=== PATIENT | female | born 1960 | race African-American/Black ===

== ENCOUNTER 2016-07-14 08:56 | Day surgery (SDC) | payer SELFPAY ==
[~2016-07-14 08:56] MED LIST: AMLO1TAB12 PO; AMLO1TAB15 PO; ASPI-482 PO; CRESTOR10 MG PO; CYAN500T17 PO; DEXL60CA PO; FENTANYL PF 100 MCG/2 ML VIAL. IV PRN; FERR-26 PO; HEPARIN S0DIUM 5,000 UNIT in IV NORMAL SALINE 500ML BAG 500 ML IRR ONE; HYDR25TA9 PO; HYDROMORPHONE 2 MG/ML VIAL. IV PRN; IBUP-1027 PO; IV RINGERS,LACTATED 1000ML 1,000 ML IV SCH; LIDOCAINE 1% 1 ML SYRINGE. ID PRN; LORA10TA3 PO; METF10002 PO; MORPHINE SULFATE 2 MG/ML DISP.SYRIN. IV PRN; ONDANSETRON PF 4 MG/2 ML VIAL. IV PRN; OXYC-323 PO; OXYC5CAP3 PO; PANT40TA3 PO; POLY17PO5 PO; POTA20TA82 PO; PROCHLORPERAZINE 10 MG/2 ML VIAL. IV PRN; RANI300T3 PO; TRIA15CR3 TP; VENTOLIN HFA18 GM INH
[2016-07-14] MEDS ORDERED: CEFAZOLIN 2GM PREMIX 50 ML IV ONE ×2 (09:45→11:45)
[2016-07-14] MEDS ORDERED: BUPIVAC MPF-EPI 0.5%-1:200000 30 ML VIAL. ONE (10:06)
[2016-07-14] MEDS ORDERED: HEPARIN for IV BOLUS 10,000 UNIT/10 ML VIAL. ONE (10:07)
[2016-07-14] MEDS ORDERED: LIDOCAINE 2% 100 MG/5 ML DISP.SYRIN. ONE (10:15)
[2016-07-14] MEDS ORDERED: PROPOFOL 20 ML IV ONE (10:15)
[2016-07-14] MEDS ORDERED: VANCOMYCIN 1GM IVPB FOR OMNI 250 ML ONE (10:22)
[2016-07-14] MEDS ORDERED: VANCOMYCIN 1GM IVPB FOR OMNI 250 ML IV ONE (10:45)
[2016-07-14] MEDS ORDERED: CEFAZOLIN PREMIX 2 GM/50 ML BAG. IV ONE (10:49)
[2016-07-14] MEDS ORDERED: KETAMINE HCL 500 MG/10 ML VIAL. ONE (10:53)
--- NOTE | 2016-07-14 11:40 | PDOC ---
BRIEF OPERATIVE NOTE Pre-Op Diagnosis gastric cancer left ij port a cath placement with u/s and fluoro k ponnjenniferu local/sedation ebl 10 ivf 300 keren well to rr stable. [id number] AZUL CROUCH MD Jul 14, 2016 11:40
[2016-07-14] MEDS: FENTANYL PF 100 MCG/2 ML VIAL. IV PRN ×2 (12:09→12:29)
--- NOTE | 2016-07-14 12:09 | RAD ---
Indication: IJ port placement. Time of exam 11:58 AM Comparison is made with prior chest from 04/02/2016. Left IJ port has been placed and has the tip overlying the SVC. A right-sided port has been removed. Lungs are clear. There is no pneumothorax. Impression: Port placement. No pneumothorax is identified.
[2016-07-14] MEDS ORDERED: IBUPROFEN 200 MG TABLET PO ONE (12:11)
[2016-07-14] MEDS ORDERED: IBUPROFEN 800 MG TABLET. PO ONE (12:15)
[2016-07-14 12:32] VITALS: BP 119/61
--- NOTE | 2016-07-14 12:58 | OP ---
DATE OF SURGERY: 07/14/2016 PREOPERATIVE DIAGNOSIS: Gastric cancer. POSTOPERATIVE DIAGNOSIS: Gastric cancer. PROCEDURE: 1. Left internal jugular Port-A-Cath placement. 2. Ultrasound-guided venous access. 3. Intraoperative use of fluoroscopy. SURGEON: Azul Crouch MD ANESTHESIA: Local with sedation. ESTIMATED BLOOD LOSS: 10 mL. INTRAVENOUS FLUIDS: 300 mL. INDICATIONS: The patient is a 55-year-old female who has gastric cancer and is in need of ongoing chemotherapy. She previously had right IJ Port-A-Cath placed, but it became infected and required it to be removed. She is here now for left sided Port-A-Cath placement. PROCEDURE IN DETAIL: After informed consent was obtained, the patient was taken to the operating room and placed in supine position. After adequate induction of IV sedation, she was prepped and draped in usual sterile fashion. She was given 2 grams of Ancef IV and then vancomycin 1 gram IV was infusing upon entry into the operating room. The left internal jugular vein was visualized with ultrasound. The overlying skin was anesthetized with local anesthetic. Cook needle was used to access the left internal jugular vein under direct ultrasound guidance. The vein was accessed on the first attempt. Venous blood aspirated easily into the syringe. The syringe was removed, guidewire was advanced through the Cook needle under direct fluoroscopic vision, it was confirmed that the guidewire advanced down the right side of the heart. The Cook needle was removed. The guidewire was clamped to the drapes with the hemostat. Skin was anesthetized with local anesthetic at the right chest and then tunneled from the right chest to the right neck. Skin incisions at the right chest was made and a pocket was created with cautery for the Port-A-Cath. The skin incision was made over the guidewire and then the catheter was tunneled from the right chest to the right neck. The catheter was not allowed to touch the skin during the procedure. It was brought on and laid on a sterile blue towel just beneath the chest incision. Dilator and sheath were passed over the guidewire under fluoroscopic vision where the patient was in Trendelenburg and dilator and sheath passed easily. The guidewire slid back and forth easily throughout passage of the dilator and sheath. The dilator and guidewire were removed leaving the sheath in place. The catheter was inserted into the sheath. The sheath was split and removed. The patient was taken out of Trendelenburg and then under direct fluoroscopic vision, the catheter was withdrawn to a distance of 26 cm, at which point it was in the distal SVC right atrial junction. The catheter was then cut, the port was attached and a collar was then secured over the port catheter junction. The port was placed in the pocket. It was aspirated venous blood, aspirated easily. It was then flushed with dilute heparinized saline of 10 units of heparin per mL of saline. No extravasation of flush was noted at the port-catheter junction and then the catheter was locked with a final locking flush of 2 mL of heparin with the constitution of heparin being 1000 units per mL. The incision was closed. The deep layer was closed with 3-0 PDS in a running fashion. The skin was closed with 4-0 Monocryl in subcuticular fashion. An incision at the left neck was closed with 4-0 Monocryl in a subcuticular fashion. Sterile dressings were placed, which consisted of the equivalent of Dermabond followed by Steri-Strips and island dressing. She tolerated the procedure well. There were no apparent complications. She was then transferred in stable condition to recovery room. AZUL CROUCH MD DR: OLIVIA/john JOB#: [id number] / [id number] [facility] ULYSSES CLEMONS MD, VINAY MD MTDD
== END 2016-07-14 13:09 | disposition home or self-care (01) ==
LOC: SURG 08:56
PROVIDERS: ATTEND Surgery
DX: C16.9 Malignant neoplasm of stomach, unspecified (principal); I10 Essential (primary) hypertension; E11.9 Type 2 diabetes mellitus without complications; E78.00 Pure hypercholesterolemia, unspecified; J45.909 Unspecified asthma, uncomplicated; Z85.028 Personal history of other malignant neoplasm of stomach; Z98.84 Bariatric surgery status; Z83.3 Family history of diabetes mellitus; Z80.3 Family history of malignant neoplasm of breast
CPT/HCPCS: 36561; 71010; 82947; C1769; J0690; J2704; J3010; J3370; J3490; J7040; 36556

== ENCOUNTER → 2016-10-04 | Day surgery (SDC) | payer SELFPAY ==
[~2016-10-04] MED LIST changes: -FENTANYL PF 100 MCG/2 ML VIAL. IV PRN; -HEPARIN S0DIUM 5,000 UNIT in IV NORMAL SALINE 500ML BAG 500 ML IRR ONE; -HYDROMORPHONE 2 MG/ML VIAL. IV PRN; -IV RINGERS,LACTATED 1000ML 1,000 ML IV SCH; -LIDOCAINE 1% 1 ML SYRINGE. ID PRN; +LIDOCAINE 1%/EPI 1:100,000 20 ML VIAL. INJ ONE; +LIDOCAINE 1%/EPI 1:100,000 20 ML VIAL. ONE; -MORPHINE SULFATE 2 MG/ML DISP.SYRIN. IV PRN; -ONDANSETRON PF 4 MG/2 ML VIAL. IV PRN; -PROCHLORPERAZINE 10 MG/2 ML VIAL. IV PRN
[2016-10-04 11:00] VITALS: BP 128/81
--- NOTE | 2016-10-04 11:47 | PDOC ---
BRIEF OPERATIVE NOTE Pre-Op Diagnosis #[id number] exposed infected port a cath removal of infected port demetria crouch local ebl <5 keren well dc home. AZUL CROUCH MD Oct 04, 2016 11:47
--- NOTE | 2016-10-04 12:23 | OP ---
DATE OF SURGERY: PREOPERATIVE DIAGNOSIS: Exposed infected Port-A-Cath. POSTOPERATIVE DIAGNOSIS: Exposed infected Port-A-Cath. PROCEDURE: Removal of exposed infected Port-A-Cath. SURGEON: Azul Crouch M.D. ANESTHESIA: Local. ESTIMATED BLOOD LOSS: Less than 5 mL. IV FLUIDS: None. INDICATIONS: The patient is a 56-year-old female who is getting chemotherapy for metastatic gastric cancer, who presented to my office today with an exposed Port-A-Cath. She is here today for excision. DESCRIPTION OF PROCEDURE: After informed consent was obtained, the patient was taken to the minor room. She was placed in supine position. The area was prepped and draped in a sterile fashion; the skin was then anesthetized with local anesthetic. The wound was largely open already, it was enlarged slightly both medially and laterally with a scalpel and then the 2 Prolene sutures attaching the port to the chest wall were cut and excised. The port was removed and the tip was sent for culture. The catheter tip was inspected to make sure that the entire catheter was removed and confirmed that it was removed in its entirety. The wound was cultured as well. The opening in the subcutaneous tissue where the catheter inserted into the tract from the chest to the neck was oversewn with 3-0 Vicryl suture x 2. There was no bleeding from this site. The wound was irrigated. It was hemostatic. It was then packed with dry gauze and covered with gauze and tape. She was asked to pack her wound daily and she ____ when her right side of port became infected. She says she understands and will do this. She is going to followup me in my office in two weeks. AZUL CROUCH MD DR: OLIVIA/john JOB#: [id number] / [id number] ULYSSES CLEMONS MD, VINAY MD
--- NOTE | 2016-10-05 15:13 | PATHOLOGY ---
PATHOLOGY REPORT * * * * * * * * FINAL DIAGNOSIS: Port-a-cath tip (Gross only). (JPM:; d/t: 10/05/16) REPORT ELECTRONICALLY SIGNED BY: Tyson Donahue M.D. DATE/TIME: 10/05/2016 15:12 * * * * * * * * GROSS PATHOLOGY: The specimen is received fresh, labeled "Celia Celis, Port-A-Cath tip". Received is a segment of white tubing measuring 2.7 cm in length by 0.3 cm in diameter. A gross photograph is taken. Sections are not submitted. (CAA; 10/04/2016) INITIAL CPT CODE(S): A; 45312 Professional services performed [place] [facility] [place] [address] Technical services performed by [facility] at [address] [place] [address] [address] [address]. SPECIMEN(S) RECEIVED: A.Port-a-cath tip CLINICAL HISTORY: Port removal PATIENT: CELIA CELIS /AGE: 107/16/1960 (Age: 56) PATIENT #: [id number] ALT CASE #: SPECIMEN COLLECTION DATE: 10/04/2016 SPECIMEN RECEIVED DATE: 10/04/2016 [facility] - [address] [place] [address] - PHONE: [phone] * * * END OF REPORT * * *
== END | disposition home or self-care (01) ==
LOC: SURG 10:28
PROVIDERS: ATTEND Surgery
DX: T80.218A Other infection due to central venous catheter, initial encounter (principal); C78.89 Secondary malignant neoplasm of other digestive organs; E78.00 Pure hypercholesterolemia, unspecified; I10 Essential (primary) hypertension; J45.909 Unspecified asthma, uncomplicated; M19.90 Unspecified osteoarthritis, unspecified site; E11.9 Type 2 diabetes mellitus without complications; D64.9 Anemia, unspecified; Z86.14 Personal history of Methicillin resistant Staphylococcus aureus infection
CPT/HCPCS: 36590; 87205; J3490; 87071; 87075; 88300

== ENCOUNTER 2016-10-21 08:34 | Day surgery (SDC) | payer OTHER ==
[~2016-10-21] VITALS: Ht 152.4 cm; Wt 57.2 kg
[~2016-10-21 08:34] MED LIST changes: +BUPIVAC MPF-EPI 0.5%-1:200000 30 ML VIAL. ONE; +HEPARIN SODIUM 5,000 UNIT in IV NORMAL SALINE 500ML BAG 500 ML IRR ONE; +HEPARIN for IV BOLUS 10,000 UNIT/10 ML VIAL. ONE; +HYDROmorphone 2 MG/ML VIAL IV PRN; +IV RINGERS,LACTATED 1000ML 1,000 ML IV SCH; +LIDOCAINE 1% 1 ML SYRINGE. ID PRN; -LIDOCAINE 1%/EPI 1:100,000 20 ML VIAL. INJ ONE; -LIDOCAINE 1%/EPI 1:100,000 20 ML VIAL. ONE; +METF-620 PO; -METF10002 PO; +MORPHINE SULFATE 2 MG/ML DISP.SYRIN. IV PRN; +ONDANSETRON PF 4 MG/2 ML VIAL. IV PRN; +POLY17PO29 PO; -POLY17PO5 PO; +PROCHLORPERAZINE 10 MG/2 ML VIAL. IV PRN; +VANCOMYCIN 1GM IVPB FOR OMNI 250 ML IV ONE; +fentaNYL PF VIAL 100 MCG/2 ML VIAL IV PRN
[2016-10-21] MEDS ORDERED: DESFLURANE 61 TO 120 MINUTES IH ONE (09:45)
[2016-10-21] MEDS ORDERED: DEXAMETHASONE SOD PHOS 20 MG/5 ML VIAL. ONE (09:46)
[2016-10-21] MEDS ORDERED: MIDAZOLAM HCL/PF 2 MG/2 ML VIAL. ONE (09:46)
[2016-10-21] MEDS ORDERED: LIDOCAINE 2% 100 MG/5 ML SYRINGE. ONE (09:46)
[2016-10-21] MEDS ORDERED: PROPOFOL 20 ML IV ONE (09:46)
[2016-10-21] MEDS ORDERED: ONDANSETRON PF 4 MG/2 ML VIAL. ONE (09:46)
[2016-10-21] MEDS ORDERED: fentaNYL PF VIAL 100 MCG/2 ML VIAL ONE (09:46)
[2016-10-21] MEDS ORDERED: PHENYLEPHRINE in 0.9% NACL PF 1 MG/10 ML DISP.SYRIN. IV ONE (10:52)
[2016-10-21] MEDS ORDERED: OXYC5CAP3 PO (11:47)
[2016-10-21] MEDS ORDERED: oxyCODONE IR 5 MG TABLET PO ONE (12:05)
--- NOTE | 2016-10-21 12:09 | RAD ---
Indication Port-A-Cath placement. Assess for potential complication. A single view of the chest was obtained and is compared to an examination July 14, 2016. The heart and pulmonary vessels appear normal. There is a rounded density at the right lung base in the area of the anterior aspect of the sixth rib. This may be related to the rib itself. A pulmonary nodule is not entirely excluded. There is no acute parenchymal infiltrate or pleural fluid collection. There is a right Port-A-Cath. No complication is seen. There is no evidence of pneumothorax. IMPRESSION: Right Port-A-Cath. No complication seen. Possible pulmonary nodule right lung base
[2016-10-21 12:23] VITALS: BP 127/38
--- NOTE | 2016-10-21 12:53 | PDOC ---
BRIEF OPERATIVE NOTE Pre-Op Diagnosis gastric cancer placement of right ij port a cath k john ryees ebl <5 ivf 600 keren well to rr stable. AZUL CROUCH MD October 21, 2016 12:53
--- NOTE | 2016-10-21 15:03 | OP ---
DATE OF SURGERY: 10/21/2016 PREOPERATIVE DIAGNOSIS: Gastric cancer. POSTOPERATIVE DIAGNOSIS: Gastric cancer. PROCEDURE: 1. Placement of a right internal jugular Port-A-Cath. 2. Ultrasound-guided venous access. 3. Intraoperative use of fluoroscopy. SURGEON: Azul Crouch MD. ANESTHESIA: General. ESTIMATED BLOOD LOSS: Less than 5 mL. IV FLUIDS: 600 mL. INDICATIONS: The patient is a 56-year-old female who is in need of Port-A-Cath for ongoing treatment of gastric cancer. DESCRIPTION OF PROCEDURE: After informed consent was obtained, the patient was taken to the operating room and placed in supine position. After adequate induction of general anesthesia, she was prepped and draped in usual sterile fashion. She had been given 1 gram of vancomycin preoperatively given her history of MRSA. After prepping and draping in the usual sterile fashion, she was placed in Trendelenburg with the right IJ visualized with ultrasound, and the right IJ was accessed without difficulty under direct ultrasound-guidance. Venous blood was aspirated easily. The syringe was removed, and the guidewire was advanced through the Cook needle. Fluoroscopy was then used to confirm that the guidewire advanced on the right side of the heart. The Cook needle was removed, and the guidewire was clamped to the drape with a hemostat. Local was injected in the skin of the right chest and the subcutaneous pocket of the right chest as well as from the right chest to the right neck. Skin incision was made over the guidewire as well as on the right chest. Cautery was then used to create a pocket on the chest wall for placement of the port. The catheter was tunneled from the right neck to the right chest and allowed to lie on a sterile blue towel so that the catheter did not come in contact with the skin. Dilator and sheath were passed over the guidewire. Guidewire slid easily throughout passes of the dilator and sheath. The guidewire and dilator were removed leaving the sheath in place. The catheter was inserted through the sheath. The sheath was then removed. The patient was taken out of head-down position and returned to a flat position. The catheter was withdrawn to the superior vena cava. It was then cut, attached to the port, and then the port catheter locking device was then secured over the port catheter junction. The port was placed on a sterile blue towel and aspirated, venous blood aspirated easily into the syringe. Dilute heparinized saline was then used to flush the port. There was no extravasation from the port catheter junction. The port was placed in the subcutaneous pocket and was sutured to the chest wall with 2-0 Prolene suture x 2. The fatty layer overlying the Port-A-Cath was closed with 2-0 Monocryl in a running fashion, and the skin was closed with 4-0 Monocryl in subcuticular fashion. An incision at the right neck was also closed with 4-0 Monocryl in subcuticular fashion. Sterile dressings were placed, which consisted of Dermabond and Steri-Strips. She tolerated the procedure well. There were no apparent complications. She was transferred in stable condition to the recovery room. Also, of note, given that her last port eroded through the skin, I did dissect down to the chest wall, so there will be maximum amount of fatty tissue overlying her port to help minimize the chance of erosion. The patient does admit to picking and scratching at her incisions, and I have once again encouraged her not to do that as this will place her port in jeopardy of becoming exposed or infected. AZUL CROUCH MD DR: OLIVIA/john JOB#: [id number] / [id number] ULYSSES Livingston MD, VINAY MD
== END 2016-10-21 12:47 | disposition home or self-care (01) ==
LOC: SURG 08:34
PROVIDERS: ATTEND Surgery
DX: C16.9 Malignant neoplasm of stomach, unspecified (principal); E78.00 Pure hypercholesterolemia, unspecified; I10 Essential (primary) hypertension; J45.909 Unspecified asthma, uncomplicated; K21.9 Gastro-esophageal reflux disease without esophagitis; M19.90 Unspecified osteoarthritis, unspecified site; E11.9 Type 2 diabetes mellitus without complications; D64.9 Anemia, unspecified
CPT/HCPCS: 36561; 71010; 82947; C1769; J1100; J2250; J2370; J2405; J2704; J3010; J3370; J3490; J7040; 36556

== ENCOUNTER → 2016-10-27 | Outpatient (CLI) | payer OTHER ==
[2016-10-21 12:23] VITALS: BP 127/38
[~2016-10-27] MED LIST changes: -BUPIVAC MPF-EPI 0.5%-1:200000 30 ML VIAL. ONE; -HEPARIN SODIUM 5,000 UNIT in IV NORMAL SALINE 500ML BAG 500 ML IRR ONE; -HEPARIN for IV BOLUS 10,000 UNIT/10 ML VIAL. ONE; -HYDROmorphone 2 MG/ML VIAL IV PRN; -IV RINGERS,LACTATED 1000ML 1,000 ML IV SCH; -LIDOCAINE 1% 1 ML SYRINGE. ID PRN; -MORPHINE SULFATE 2 MG/ML DISP.SYRIN. IV PRN; -ONDANSETRON PF 4 MG/2 ML VIAL. IV PRN; -PROCHLORPERAZINE 10 MG/2 ML VIAL. IV PRN; -VANCOMYCIN 1GM IVPB FOR OMNI 250 ML IV ONE; -fentaNYL PF VIAL 100 MCG/2 ML VIAL IV PRN
== END | disposition home or self-care (01) ==
LOC: SPEC 15:35
PROVIDERS: ATTEND Surgery
DX: F20.89 Other schizophrenia (principal)
CPT/HCPCS: 87071; 87075; 87186; 87205

== ENCOUNTER → 2016-11-02 | Outpatient (CLI) | payer OTHER ==
[2016-10-21 12:23] VITALS: BP 127/38
[~2016-11-02] MED LIST changes: +CONTRAST GIVEN MC PRN; +IOHEXOL 240 MG/ML 50ML VIAL. PO ONE; +IOHEXOL 300 MG/ML 75 ML VIAL IV ONE
--- NOTE | 2016-11-02 13:25 | RAD ---
Examination: CT of the chest abdomen and pelvis were performed with oral and IV contrast History history of stomach cancer staging graft comparison: 02/20/2016 Technique: Axial CT images of the chest abdomen pelvis above with IV contrast. Coronal and sagittal reformats performed PQRS Compliance Statement: One or more of the following individualized dose reduction techniques were utilized for this examination: 1. Automated exposure control 2. Adjustment of the mA and/or kV according to patient size 3. Use of iterative reconstruction technique Findings: A 1.1 cm nodule identified in the anterior right middle lobe abutting the pleural grossly similar to prior exam The visualized Port-A-Cath is in the SVC. The visualized central airways are patent. The heart size is grossly appears unremarkable. No evidence of pleural effusion or pneumothorax identified. The visualized liver grossly appears unremarkable. The gallbladder is mildly distended. The visualized spleen, adrenals grossly appears unremarkable. Prior surgical changes identified in the stomach. The small bowel is minimally distended. Feces and gas noted in the colon. Surgical changes identified in the right colon. There is a large heterogeneous mass identified in the left mid abdomen extending into the left adnexa measuring 14.9 x 9.2 cm probably a large adnexal mass or Krukenberg tumor (given history of gastric malignancy). On the previous exam a heterogeneous mass was identified in the right measuring 9.2 x 6.5 cm. This larger mass on today's examination may be in the same mass which was seen on the right side however it has increased in size and is situated on the left. The superior most aspect of the heterogeneous mass demonstrates hypodensity with some small amount of fluid extending from the mass in the left upper quadrant and in the and along the left peritoneum could be leakage of fluid from the mass or reactive changes. Small amount of free fluid identified in the pelvis. The bilateral kidneys enhance symmetrically. The uterus appears enlarged and heterogeneous likely fibroid uterus. The urinary bladder is mildly distended. Moderate degenerative changes identified in the visualized thoracal lumbar spine. Mild skin thickening of the bilateral breast region. Impression: 1. 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 Please note that on the previous exam the heterogeneous mass was identified in the right adnexa measuring 9.2 x 6.5 cm. This large mass on today's examination may be the same mass which was seen on the right side on the prior exam, however it has increased in size and is situated on the left. The superior most aspect of the heterogeneous mass demonstrates hypodensity with some small amount of fluid extending from the mass in the left upper quadrant and in the and along the left peritoneum could be necrotic change/ leakage of fluid from the mass or reactive changes. 2. Few nonspecific air distended small bowel loops. 3. Surgical changes identified in the stomach. 4. Hepatic steatosis. 5. 1.1 cm nodule identified in the right middle lobe of the lung abutting the pleura grossly similar to prior exam. 6. Skin thickening of the bilateral breasts right greater than left, consider follow up mammogram.
== END | disposition home or self-care (01) ==
LOC: CT 09:51
PROVIDERS: ATTEND Internal Medicine Hematology & Oncology
DX: C16.2 Malignant neoplasm of body of stomach (principal); N18.3 Chronic kidney disease, stage 3 (moderate); K76.0 Fatty (change of) liver, not elsewhere classified
CPT/HCPCS: 71260; 74177; Q9966; Q9967

== ENCOUNTER → 2017-02-07 | Outpatient (CLI) | payer OTHER ==
[~2017-02-07] MED LIST changes: -DEXL60CA PO; +DEXL60CA2 PO; +OXYC5CAP PO; -OXYC5CAP3 PO
--- NOTE | 2017-02-07 15:04 | RAD ---
CT chest, abdomen and pelvis without IV contrast Indication: 56-year-old female with history of gastric cancer. Technique: CT chest/abdomen/pelvis with 75 mL of Omnipaque 300 IV and 50 mL of Omnipaque 240 by mouth with multi planar reformats. Comparison: Study from 11/02/2016 Findings: CT chest: Right chest wall chemotherapy port noted with its tip in the distal SVC. Neck base is clear. No axillary, mediastinal or hilar adenopathy. Heart is normal in size. No pericardial or pleural effusion. Relatively stable pleural-based right middle lobe nodule measuring 1.0 cm, previously 0.9 cm. No new pulmonary nodules. CT abdomen/pelvis: Liver is normal in morphology without focal hepatic lesion. Spleen within normal limits. Layering stones in the gallbladder. Pancreas within normal limits. Adrenal glands show no nodularity. New small amount of ascites noted. Post surgical changes seen within stomach with gastrojejunostomy. No bowel obstruction. Redemonstrated is a large soft tissue mass in the left lower quadrant causing mass effect on the adjacent bowel loops measuring approximately 15.5 x 15.6 x 13.2 cm, previously 11.4 x 9.7 x 10.3 cm. The mass shows internal areas of low attenuation which may suggest necrosis. The uterus is anteverted. There is dilation of the endometrial canal measuring 1.8 cm with internal soft tissue. No bowel obstruction. No pelvic or abdominal adenopathy. Diffuse mesenteric edema noted. Small ascitic fluid containing umbilical hernia. Diffuse edema of the body wall noted. Questionable nonocclusive eccentric thrombus within proximal SMV. The bladder is within normal limits. No suspicious bony lesions. Multilevel degenerative disc disease in the spine. Impression: 1. Post surgical changes from partial gastrectomy and gastrojejunostomy. 2. New small volume ascites, likely malignant. 3. Interval increase in the size of left lower quadrant abdominal mass. This may represent a left adnexal metastasis such Krukenberg tumor or synchronous ovarian malignancy. 4. Dilated endometrial cavity with internal soft tissue. This may represent endometrial polyp or endometrial carcinoma. 5. Stable right middle lobe lung nodule. 6. Cholelithiasis without acute cholecystitis. 7. Questionable small nonocclusive thrombus in the proximal SMV. PQRS Compliance Statement: One or more of the following individualized dose reduction techniques were utilized for this examination: 1. Automated exposure control 2. Adjustment of the mA and/or kV according to patient size 3. Use of iterative reconstruction technique
== END | disposition home or self-care (01) ==
LOC: CT 08:33
PROVIDERS: ATTEND Internal Medicine Hematology & Oncology
DX: C16.2 Malignant neoplasm of body of stomach (principal); R91.1 Solitary pulmonary nodule
CPT/HCPCS: 71260; 74177; Q9966; Q9967

== ENCOUNTER 2017-03-04 07:02 | Outpatient (CLI) | payer OTHER ==
[~2017-03-04] VITALS: Ht 154.9 cm; Wt 69.9 kg
[~2017-03-04 07:02] MED LIST changes: -CONTRAST GIVEN MC PRN; -IOHEXOL 240 MG/ML 50ML VIAL. PO ONE; -IOHEXOL 300 MG/ML 75 ML VIAL IV ONE
[2017-03-04] MEDS ORDERED: POLY17PO3 PO (07:41)
[2017-03-04] MEDS ORDERED: ONDA4TAB11 PO (07:41)
[2017-03-04] MEDS ORDERED: GABA-586 PO (07:41)
[2017-03-04] MEDS ORDERED: LOPE2CAP PO (07:41)
[2017-03-04] MEDS ORDERED: NORE5TAB3 PO (07:41)
[2017-03-04] MEDS ORDERED: HYDR-2758 PO (07:41)
[2017-03-04] MEDS ORDERED: DOCU100C28 PO (07:41)
[2017-03-04 07:50] LABS: BASO % 1 % (0-3); EOS % 1 % (0-3); HEMATOCRIT 30.9 % (36.0-47.0); LYMPH # 1.7 x10^3/uL (1.0-4.8); LYMPH % 53 % (24-48); MEAN CORPUSCULAR HEMOGLOBIN 28 pg (25-35); MEAN CORPUSCULAR HGB CONC 32 g/dL (31-37); MEAN CORPUSCULAR VOLUME 85 fL (79-100); MONO % 8 % (0-9); NEUT % 38 % (31-73); PLATELET COUNT 429 x10^3/uL (140-400); RED BLOOD COUNT 3.62 x10^6/uL (3.50-5.40); RED CELL DISTRIBUTION WIDTH 16.4 % (11.5-14.5); WHITE BLOOD COUNT 3.3 x10^3/uL (4.0-11.0)
[2017-03-04 08:02] VITALS: BP 154/96
[2017-03-04 08:12] LABS: INR 1.1 (0.8-1.1); PROTHROMBIN TIME PATIENT 13.2 SEC (11.7-14.0)
[2017-03-04] MEDS ORDERED: LIDOCAINE 1% / SOD BICARB 8.4% 20 ML VIAL. IJ ONE ×2 (08:45→09:45)
[2017-03-04 09:54] VITALS: BP 131/74
[2017-03-04] MEDS ORDERED: HEPARIN PF 500 UNIT/5 ML DISP.SYRIN. IV ONE (10:00)
[2017-03-04 10:10] VITALS: BP 127/73
[2017-03-04 10:25] VITALS: BP 125/76
--- NOTE | 2017-03-04 11:47 | RAD ---
Ultrasound-guided paracentesis 03/04/2017 Indication: Ascites, history of gastric cancer. Left adnexal mass. 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 Procedure: The risks and benefits of the procedure were discussed the patient. Informed consent was obtained. A timeout procedure was performed. Ultrasound evaluation of the abdomen demonstrated moderate ascites in the right lower quadrant. The right abdomen was prepped and draped using maximum sterile barrier technique. All elements of maximal sterile barrier technique including the use of a cap, mask, sterile gown, sterile gloves, large sterile sheet, appropriate hand hygiene, and 2% chlorhexidine for cutaneous antisepsis (or acceptable alternative antiseptic per current guidelines) were followed for this procedure. 1% lidocaine without epinephrine was administered for local anesthesia. Under direct ultrasound guidance a 5 [place] sheath needle was advanced into the peritoneal cavity. Reference images were stored medical record. Approximately 5 L of ascites was aspirated. Samples of this fluid were sent for further evaluation per ordering physician request. The sheath was removed and manual pressure held to achieve hemostasis. A sterile dressing was applied. No immediate complications were identified. Impression: Successful ultrasound-guided paracentesis.
== END 2017-03-04 10:35 | disposition home or self-care (01) ==
LOC: INTRAD 07:02
PROVIDERS: ATTEND Internal Medicine Hematology & Oncology
DX: R18.8 Other ascites (principal); Z85.028 Personal history of other malignant neoplasm of stomach; E78.00 Pure hypercholesterolemia, unspecified; I10 Essential (primary) hypertension; J45.909 Unspecified asthma, uncomplicated; K21.9 Gastro-esophageal reflux disease without esophagitis; Z87.39 Personal history of other diseases of the musculoskeletal system and connective tissue; M19.91 Primary osteoarthritis, unspecified site; Z86.39 Personal history of other endocrine, nutritional and metabolic disease; E11.9 Type 2 diabetes mellitus without complications; D64.9 Anemia, unspecified; Z86.14 Personal history of Methicillin resistant Staphylococcus aureus infection; Z86.69 Personal history of other diseases of the nervous system and sense organs; Z88.6 Allergy status to analgesic agent; Z98.890 Other specified postprocedural states
CPT/HCPCS: 36415; 49083; 85025; 85610; 88112; 88305

== ENCOUNTER 2017-06-15 17:04 | Emergency (ER) | payer OTHER ==
[~2017-06-15 17:04] MED LIST changes: -AMLO1TAB12 PO; -AMLO1TAB15 PO; -ASPI-482 PO; +ATROPINE 0.5 MG/5 ML DISP.SYRIN.; -CRESTOR10 MG PO; -CYAN500T17 PO; -DEXL60CA2 PO; +EPINEPHrine SYRINGE 1 MG/10 ML SYRINGE; +EPINEPHrine VIAL 30 MG/30 ML VIAL; -FERR-26 PO; -HYDR25TA9 PO; -IBUP-1027 PO; -LORA10TA3 PO; -METF-620 PO; -OXYC-323 PO; -OXYC5CAP PO; -PANT40TA3 PO; -POLY17PO29 PO; -POTA20TA82 PO; -RANI300T3 PO; -TRIA15CR3 TP; -VENTOLIN HFA18 GM INH
== END 2017-06-15 17:30 | disposition expired ==
LOC: ER 17:04
DX: I46.9 Cardiac arrest, cause unspecified (principal); E11.9 Type 2 diabetes mellitus without complications; I10 Essential (primary) hypertension; J45.909 Unspecified asthma, uncomplicated; Z85.028 Personal history of other malignant neoplasm of stomach; Z88.8 Allergy status to other drugs, medicaments and biological substances; Z91.041 Radiographic dye allergy status
CPT/HCPCS: 92950; 99291-25; J0171; J0461